=== PATIENT | female | born 1965 | race Caucasian/White ===

== ENCOUNTER 2016-11-30 10:06 | Emergency (ER) | payer BC ==
--- NOTE | 2016-11-30 12:27 | UC ---
Shoulder Pain HPI - History of Current Complaint Stated Complaint: SHOULDER INJURY Time Seen by Provider: 11/30/16 12:21 - Allergies/Home Medications Allergies/Adverse Reactions: Allergies Allergy/AdvReac Type Severity Reaction Status Date / Time No Known Allergies Allergy Verified 11/30/16 12:24 Home Medications: Home Medications NK [No Home Medications Reported] 11/30/16 [History Confirmed 11/30/16]
[2016-11-30 12:28] VITALS: BP 124/72
--- NOTE | 2016-11-30 12:58 | RAD ---
INDICATION: Atraumatic left shoulder pain COMPARISON: None TECHNIQUE: Routine frontal, Y and axial views are submitted. FINDINGS: There is no acute bony change. There is mild a.c. and glenohumeral osteoarthritis. There are findings of calcific tendinitis. IMPRESSION: OSTEOARTHRITIS. CALCIFIC TENDINITIS.
== END 2016-11-30 13:26 | disposition home or self-care (01) ==
LOC: UCEAST 10:06
DX: S49.90XA Unspecified injury of shoulder and upper arm, unspecified arm, initial encounter (principal); X58.XXXA Exposure to other specified factors, initial encounter
CPT/HCPCS: 99212; G0463